=== PATIENT | male | born 1965 | race Hispanic/Latino ===

== ENCOUNTER 2020-07-10 08:28 | Emergency (ER) | payer OTHER ==
[2020-07-10 08:49] VITALS: BP 149/90
--- NOTE | 2020-07-10 10:19 | Cat Scan Report ---
CT HEAD WITHOUT CONTRAST INDICATION / CLINICAL INFORMATION: Headache. Closed head injury. TECHNIQUE: All CT scans at this location are performed using CT dose reduction for ALARA by means of automated e xposure control. COMPARISON: None available. FINDINGS: There is no acute intracranial hemorrhage. Ventricles are normal in size without midline shift or mas s effect. Sella and pituitary appear normal. Corpus callosum appears normal. There is extensive left maxillary left ethmoid sinus disease. ADDITIONAL FINDINGS: None. IMPRESSION: 1. Left maxillary and ethmoid sinus disease. No acute intracranial findings. Signer Name: Gagan Summers MD Signed: 07/10/2020 10:15 AM Workstation Name: [id number]
--- NOTE | 2020-07-10 10:20 | Emergency Department Report ---
ED Head Trauma HPI - General Chief complaint: Head Injury Stated complaint: WORK RELATED HEAD INJURY Time Seen by Provider: 07/10/20 10:12 Source: patient Mode of arrival: Ambulatory Limitations: No Limitations - History of Present Illness Initial comments: 55-year-old male with no significant past history presents to the ER today for evaluation after head injury. Patient states that he was trying to break loose a pipe, and when he fell he did he fell backward and struck his head on cement block wall. States that he felt dazed but denies any LOC. He states that for a brief 30 seconds his hands felt numb and he had some trouble controlling his hands but this has since resolved. He reports left-sided neck pain. He denies any swelling, bruising, open wound to his scalp. He denies any nausea, vomiting, vision changes, speech changes, chest pain or any other symptoms at this time. MD Complaint: head injury -: Sudden, This morning - Related Data Allergies/Adverse reactions: Allergies Allergy/AdvReac Type Severity Reaction Status Date / Time Penicillins Allergy Rash Verified 07/10/20 08:48 ED Review of Systems ROS: Stated complaint: WORK RELATED HEAD INJURY Other details as noted in HPI Comment: All other systems reviewed and negative Constitutional: denies: chills, fever Eyes: as per HPI. denies: eye discharge, vision change ENT: denies: ear pain, throat pain, dental pain, hearing loss, epistaxis, congestion Respiratory: denies: cough, orthopnea, shortness of breath, SOB with exertion, SOB at rest, wheezing Cardiovascular: denies: chest pain, palpitations, dyspnea on exertion, edema, syncope, paroxysmal nocturnal dyspnea Gastrointestinal: denies: abdominal pain, nausea, vomiting, diarrhea, constipation, hematemesis, hematochezia Genitourinary: denies: urgency, dysuria, frequency, hematuria, discharge, testicular pain, testicular mass Musculoskeletal: other (Neck pain). denies: back pain, joint swelling, arthralgia, myalgia Skin: denies: rash, lesions, change in color, change in hair/nails, pruritus Neurological: paresthesias. denies: headache, weakness, numbness, abnormal gait, vertigo Psychiatric: denies: anxiety, depression Hematological/Lymphatic: denies: easy bleeding, easy bruising ED Past Medical Hx - Past Medical History Previous Medical History?: No - Surgical History Past Surgical History?: Yes Hx Appendectomy: Yes Additional Surgical History: Left shoulder surgery ED Physical Exam - General Limitations: No Limitations General appearance: alert, in no apparent distress - Head Head exam: Present: normocephalic, normal inspection, other (Small area of bruising noted to left occipital scalp with mild swelling but patient denies any tenderness to palpation and no crepitus noted or deformity.) - Eye Eye exam: Present: normal appearance, PERRL, EOMI Pupils: Present: normal accommodation - ENT ENT exam: Present: normal exam, mucous membranes moist, TM's normal bilaterally - Neck Neck exam: Present: normal inspection, tenderness (Mild tenderness to palpation to the paraspinal muscle left side of posterior neck. No vertebral point tenderness. He has full range of motion of his neck. No step-off noted or any other deformity, no bruising or ecchymosis or erythema noted.), full ROM - Respiratory Respiratory exam: Present: normal lung sounds bilaterally. Absent: respiratory distress, wheezes, rales, rhonchi - Cardiovascular Cardiovascular Exam: Present: regular rate, normal rhythm, normal heart sounds - GI/Abdominal GI/Abdominal exam: Present: soft. Absent: distended, tenderness, guarding, rebound - Extremities Exam Extremities exam: Present: normal inspection, full ROM - Back Exam Back exam: Present: normal inspection, full ROM - Neurological Exam Neurological exam: Present: alert, oriented X3, CN II-XII intact, normal gait, reflexes normal. Absent: motor sensory deficit - Psychiatric Psychiatric exam: Present: normal affect, normal mood - Skin Skin exam: Present: normal color ED Course Vital Signs 07/10/20 08:48 Temperature 98.4 F Pulse Rate 72 Respiratory 16 Rate Blood Pressure 149/90 [Right] O2 Sat by Pulse 97 Oximetry - Radiology Data Radiology results: report reviewed Age/Sex: 55 / M ADM Date: 07/10/20 Loc: ED Attending Dr: Ordering Physician: KARLO ARRIOLA DO Date of Service: 07/10/20 Procedure(s): CT head/brain wo con Accession Number(s): [id number] cc: KARLO ARRIOLA DO CT HEAD WITHOUT CONTRAST INDICATION / CLINICAL INFORMATION: Headache. Closed head injury. TECHNIQUE: All CT scans at this location are performed using CT dose reduction for ALARA by means of automated exposure control. COMPARISON: None available. FINDINGS: There is no acute intracranial hemorrhage. Ventricles are normal in size without midline shift or mass effect. Sella and pituitary appear normal. Corpus callosum appears normal. There is extensive left maxillary left ethmoid sinus disease. ADDITIONAL FINDINGS: None. IMPRESSION: 1. Left maxillary and ethmoid sinus disease. No acute intracranial findings. Signer Name: Gagan Summers MD Signed: 07/10/2020 10:15 AM Workstation Name: [id number] Transcribed By: SAROJ Dictated By: DEEP SUMMERS MD Electronically Authenticated By: DEEP SUMMERS MD Signed Date/Time: 07/10/20 1015 DD/ 1014 TD/TT: Patient: PAOLA STRANGE MR#: [id number] : 1965 Acct:[id number] Age/Sex: 55 / M ADM Date: 07/10/20 Loc: ED Attending Dr: Ordering Physician: SEH ESTRELLA Date of Service: 07/10/20 Procedure(s): CT cervical spine wo con Accession Number(s): [id number] cc: SHE ESTRELLA CT CERVICAL SPINE WITHOUT CONTRAST INDICATION: neck pain/injury. TECHNIQUE: Axial CT images of the spine were obtained. Sagittal and coronal reformatted images were produced. All CT scans at this location are performed using CT dose reduction for ALARA by means of automated exposure control. COMPARISON: None available. FINDINGS: ACUTE FRACTURE(S) OR SUBLUXATION: None. SPINAL DEGENERATIVE CHANGES: There is mild degenerative disc disease at C3-4 and moderate degenerative disc disease at C5-6 and C6. There is mild spinal canal stenosis at C5-6. PARASPINAL SOFT TISSUES: No soft tissue swelling or other acute abnormalities. ADDITIONAL FINDINGS: No significant additional findings. IMPRESSION: 1. No acute fracture or subluxation in the spine in neutral position. Signer Name: Justice Esquivel MD Signed: 07/10/2020 1:27 PM Workstation Name: [id number] Transcribed By: ANDRES Dictated By: Justice Esquivel MD Electronically Authenticated By: Justice Esquivel MD Signed Date/Time: 07/10/20 1327 DD/ 1322 TD/TT: - Medical Decision Making The patient presented with a complaint of a head injury. Patient is resting comfortably and he is alert and in no distress. The patient has a normal mental status, has a GCS of 15, and is neurologically intact. The history, exam, diagnostic testing and current condition does not demonstrate signs of basilar skull fracture, clinically significant intracranial injury or cervical trauma. Patient's vital signs have been stable. The patient condition is stable and appropriate for discharge. The patient will pursue further outpatient evaluation with the primary care physician or other designated or consulting physician as indicated in the discharge instruction. Critical care attestation.: If time is entered above; I have spent that time in minutes in the direct care of this critically ill patient, excluding procedure time. ED Disposition Clinical Impression: Head injury, closed, without LOC Disposition: DC-01 TO HOME OR SELFCARE Is pt being admited?: No Does the pt Need Aspirin: No Condition: Stable Instructions: Head Injury, Adult, [id number] Additional Instructions: Recommend taking Tylenol for any pain. Follow-up with the primary care doctor listed on your discharge instructions or workers comp doctor in the next 2 to 3 days. Return to the ER if your symptoms changes or worsens in any way. Referrals: [facility] RECIO [Other] - 3-5 Days Time of Disposition: 13:46
--- NOTE | 2020-07-10 13:32 | Cat Scan Report ---
CT CERVICAL SPINE WITHOUT CONTRAST INDICATION: neck pain/injury. TECHNIQUE: Axial CT images of the spine were obtained. Sagittal and coronal reformatted images were produced. Al l CT scans at this location are performed using CT dose reduction for ALARA by means of automated exp osure control. COMPARISON: None available. FINDINGS: ACUTE FRACTURE(S) OR SUBLUXATION: None. SPINAL DEGENERATIVE CHANGES: There is mild degenerative disc disease at C3-4 and moderate degenerativ e disc disease at C5-6 and C6. There is mild spinal canal stenosis at C5-6. PARASPINAL SOFT TISSUES: No soft tissue swelling or other acute abnormalities. ADDITIONAL FINDINGS: No significant additional findings. IMPRESSION: 1. No acute fracture or subluxation in the spine in neutral position. Signer Name: Justice Esquivel MD Signed: 07/10/2020 1:27 PM Workstation Name: [id number]
== END 2020-07-10 14:00 | disposition home or self-care (01) ==
LOC: ED 08:28
DX: S09.90XA Unspecified injury of head, initial encounter (principal); Z90.49 Acquired absence of other specified parts of digestive tract; Z98.890 Other specified postprocedural states; Z88.0 Allergy status to penicillin; W19.XXXA Unspecified fall, initial encounter; Y93.89 Activity, other specified; Y92.89 Other specified places as the place of occurrence of the external cause; Y99.8 Other external cause status
CPT/HCPCS: 70450; 72125